=== PATIENT | male | born 1990 ===

== ENCOUNTER 2021-03-05 19:37 | Emergency (ER) | payer MEDICAID, OTHER ==
[~2021-03-05] VITALS: Ht 185.4 cm; Wt 154.0 kg
[2021-03-05 20:07] VITALS: BP 171/114
== END 2021-03-05 22:13 | disposition left against medical advice (07) ==
LOC: ER 19:38
DX: S61.012A Laceration without foreign body of left thumb without damage to nail, initial encounter (principal); Z53.21 Procedure and treatment not carried out due to patient leaving prior to being seen by health care provider; W45.8XXA Other foreign body or object entering through skin, initial encounter; Y93.89 Activity, other specified; Y92.89 Other specified places as the place of occurrence of the external cause; Y99.8 Other external cause status